=== PATIENT | female | born 1965 ===

== ENCOUNTER 2017-06-17 18:06 | Observation (INO) | payer OTHER ==
--- NOTE | 2017-06-17 19:24 | ED PDOC ---
Arrival/HPI - General Chief Complaint: Palpitations Time Seen by Provider: 06/17/17 18:32 Historian: Patient, Family EM Caveat: Language Barrier - History of Present Illness Narrative History of Present Illness (Text): 06/17/17 19:16 Pt is a 52 yr old female with PMH of a collapsed heart valve x 15 yrs, asthma and travel history who complaining of palpitations and right LE pain since this afternoon that lasted approx 2 hrs then subsided and then started again 2 more times. Pt arrived from [facility] on Tuesday to visit family and felt fine until this afternoon. 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 Denies shortness of breath, nausea, vomiting, diarrhea,fever, back pain, or any other complaints. Allergic to cats and has needed her inhaler to control asthma since she arrived as she is staying with family that has a cat. Pt called her actuarial clerk in who advised her to go to the Emergency department. Pt normally takes 2.5 mg Bisoprolol but as her symptoms came on today, she took 5mg more than normal. Time/Duration: 4-6 hours Symptom Onset: Sudden Symptom Course: Unchanged Quality: Aching Severity Level: 3 Activities at Onset: Rest Context: Home Past Medical History - Provider Review Nursing Documentation Reviewed: Yes - Travel History Have you recently traveled outside [place] w/in the past 3 mons?: Yes If Yes, travel location?: [facility] - Cardiac Hx Heart Murmur: Yes - Pulmonary Hx Asthma: Yes - Neurological Hx Neurological Disorder: No - HEENT Hx HEENT Disorder: No - Renal Hx Renal Disorder: No - Endocrine/Metabolic Hx Endocrine Disorders: No - Hematological/Oncological Hx Blood Disorders: No - Integumentary Hx Dermatological Disorder: No - Musculoskeletal/Rheumatological Hx Musculoskeletal Disorders: No - Gastrointestinal Hx Gastrointestinal Disorders: No - Genitourinary/Gynecological Hx Genitourinary Disorders: No - Psychiatric Hx Psychophysiologic Disorder: No Hx Substance Use: No - Anesthesia Hx Anesthesia: Yes Family/Social History - Physician Review Nursing Documentation Reviewed: Yes Family/Social History: Unknown Family HX Smoking Status: Never Smoked Hx Alcohol Use: No Hx Substance Use: No Allergies/Home Meds Allergies/Adverse Reactions: Allergies No Known Allergies Allergy (Verified 06/17/17 18:20) Review of Systems - Physician Review All systems were reviewed & negative as marked: Yes - Review of Systems Systems not reviewed;Unavailable: Acuity of Condition Constitutional: Normal Eyes: Normal ENT: Normal Respiratory: Normal. absent: SOB, Cough Cardiovascular: Palpitations, Calf Pain (right popliteal area). absent: Chest Pain, DAVIDSON Gastrointestinal: Normal. absent: Abdominal Pain, Nausea, Vomiting Genitourinary Female: Normal. absent: Dysuria Musculoskeletal: Normal. absent: Back Pain, Neck Pain Skin: Normal Neurological: Headache, Dizziness Endocrine: Normal Hemo/Lymphatic: Normal Psychiatric: Normal Physical Exam Vital Signs Reviewed: Yes Vital Signs Temp Pulse Resp BP Pulse Ox 06/18/17 01:24 98.0 F 70 18 112/69 99 06/18/17 01:10 70 18 112/69 99 06/17/17 23:08 97.8 F 66 18 110/50 L 100 06/17/17 18:25 98.2 F 92 H 18 146/77 100 Temperature: Afebrile Blood Pressure: Normal Pulse: Regular Respiratory Rate: Normal Appearance: Positive for: Well-Appearing, Non-Toxic, Comfortable Pain Distress: None Mental Status: Positive for: Alert and Oriented X 3 - Systems Exam Head: Present: Atraumatic, Normocephalic Pupils: Present: PERRL Extroacular Muscles: Present: EOMI Conjunctiva: Present: Normal Mouth: Present: Moist Mucous Membranes Neck: Present: Normal Range of Motion Respiratory/Chest: Present: Clear to Auscultation, Good Air Exchange. No: Respiratory Distress, Accessory Muscle Use, Wheezes, Decreased Breath Sounds Cardiovascular: Present: Regular Rate and Rhythm, Normal S1, S2, Irregular Rhythm. No: Murmurs, Peripheal Pulses Present, Tachycardic, Bradycardic, Rub, Gallop, Muffled Abdomen: Present: Normal Bowel Sounds. No: Tenderness, Distention, Peritoneal Signs Back: Present: Normal Inspection Upper Extremity: Present: Normal Inspection. No: Cyanosis, Edema Lower Extremity: Present: Normal Inspection. No: Edema Neurological: Present: GCS=15, CN II-XII Intact, Speech Normal, Motor Func Grossly Intact, Normal Sensory Function, Normal Cerebellar Funct Skin: Present: Warm, Dry, Normal Color. No: Rashes Psychiatric: Present: Alert, Oriented x 3, Normal Insight, Normal Concentration Medical Decision Making ED Course and Treatment: 06/17/17 19:27 Impression Pt is a 52 yr old female with PMH of a collapsed heart valve x 15 yrs, asthma and travel history who complaining of palpitations and right LE pain since this afternoon that lasted approx 2 hrs then subsided and then started again 2 more times. On exam, heart sounds seemed irregular, lungs ctab, neg Pattie sign Plan PE w/u including CTA, doppler b/l LE, cardiac enzymes Assess and dispo 06/17/17 20:21 Progress note spoke with radiology; pt stated allergic reaction to IV contrast and declined' order discontinued D-dimer ordered and V/Q scan ordered; 06/17/17 22:28 Labs do not reveal thrombosis 06/17/17 23:37 Troponins and d-dimer negative as well as v/q and dopplers 06/18/17 01:[address] Haynes and pt admitted to [facility] obs for sinus arrhythmia under Dr Villafana; pt evaluated by resident and Dr Haynes Re-evaluation Time: 22:39 (Pt resting; pulse still irregular) Reassessment Condition: Re-examined - Lab Interpretations Lab Results: 06/17/17 19:31 06/17/17 19:31 Lab Results 06/17/17 19:41: Urine Color Light yellow, Urine Appearance Clear, Urine pH 8.5, Ur Specific [place] 1.010, Urine Protein Negative, Urine Glucose (UA) Negative, Urine Ketones Negative, Urine Blood Negative, Urine Nitrate Negative, Urine Bilirubin Negative, Urine Urobilinogen 0.2, Ur Leukocyte Esterase Negative 06/17/17 19:31: D-Dimer, Quantitative < 200 06/17/17 19:31: Sodium 142, Chloride 102, Potassium 3.9, Carbon Dioxide 28, Anion Gap 16, BUN 12, Creatinine 0.7, Est GFR ( Amer) > 60, Est GFR (Non- Af Amer) > 60, Random Glucose 141 H, Calcium 9.5, Total Bilirubin 0.2, AST 27, ALT 25, Alkaline Phosphatase 75, Lactate Dehydrogenase 458, Total Creatine Kinase 55, Troponin I < 0.01, Total Protein 8.3, Albumin 4.7, Globulin 3.6, Albumin/Globulin Ratio 1.3 06/17/17 19:31: pO2 42, VBG pH 7.42, VBG pCO2 44.0, VBG HCO3 28.5 H, VBG Total CO2 29.9 H, VBG O2 Sat (Calc) 88.5 H, VBG Base Excess 3.4 H, VBG Potassium 3.8, Sodium 138.0, Chloride 104.0, Glucose 144 H, Lactate 1.3, FiO2 21.0, Venous Blood Potassium 3.8 06/17/17 19:31: PT 10.6, INR 0.93, APTT 31.4 06/17/17 19:31: WBC 7.2, RBC 4.72, Hgb 14.6, Hct 41.6, MCV 88.1, MCH 30.9, MCHC 35.1, RDW 12.6, Plt Count 288, MPV 9.6, Gran % 82.1 H, Lymph % (Auto) 13.4 L, [place] % (Auto) 4.3, Eos % (Auto) 0.1 L, Baso % (Auto) 0.1, Gran # 5.88, Lymph # ( Auto) 1.0 L, [place] # (Auto) 0.3, Eos # (Auto) 0.0, Baso # (Auto) 0.01 - RAD Interpretation Radiology Orders: 06/17/17 19:11 CHEST TWO VIEWS (PA/LAT) [RAD] Stat DUPLEX LOWER EXTRM VEIN BILAT [US] Stat 06/17/17 20:20 LUNG PERF & VENT SCAN [NM] Stat - Medication Orders Current Medication Orders: Levalbuterol HCl (Xopenex) 0.63 mg IH [id number] [facility] Levalbuterol HCl (Xopenex) 0.63 mg IH Q2H PRN PRN Reason: Shortness of Breath Pantoprazole Sodium (Protonix Ec Tab) 40 mg PO 0600 [facility] Last Admin: 06/18/17 06:20 Dose: 40 mg Propranolol HCl (Inderal) 10 mg PO TID [facility] Last Admin: 06/18/17 10:33 Dose: Discontinued Medications Albuterol/Ipratropium (Duoneb 3 Mg/0.5 Mg (3 Ml) Ud) 3 ml IH [id number] [facility] Last Admin: 06/18/17 08:18 Dose: 3 ml Clonazepam (Klonopin) 1 mg PO HS STA PRN Reason: Protocol Stop: 06/18/17 00:25 Last Admin: 06/18/17 01:09 Dose: 1 mg Re-Assess: Reassess Psych Meds Document 06/18/17 02:09 CD (Rec: 06/18/17 10:33 CD [id number]) Reassess Psych Med Effective Metoprolol Tartrate (Lopressor) 25 mg PO BID EDIN Last Admin: 06/18/17 09:48 Dose: 25 mg MAR Pulse and Blood Pressure Document 06/18/17 09:48 CD (Rec: 06/18/17 09:48 CD [id number]) Pulse Pulse Rate (60-90) 80 Blood Pressure Blood Pressure (100/60-150/90) 114/66 Disposition/Present on Arrival - Present on Arrival Any Indicators Present on Arrival: Yes History of DVT/PE: No History of Uncontrolled Diabetes: No Urinary Catheter: No History of Decub. Ulcer: No History Surgical Site Infection Following: None - Disposition Have Diagnosis and Disposition been Completed?: Yes Diagnosis: Sinus arrhythmia, Mitral valve prolapse Disposition: HOSPITALIZED Disposition Time: 00:00 Patient Plan: Telemetry Condition: STABLE
[2017-06-17 19:37] LABS: BASO # 0.01 K/mm3 (0.0-2.0); BASO % 0.1 % (0.0-3.0); EOS % 0.1 % (1.5-5.0); GRAN # 5.88 (1.4-6.5); GRAN % 82.1 % (50.0-68.0); HEMOGLOBIN 14.6 g/dL (12.0-16.0); LYMPH % 13.4 % (22.0-35.0); MEAN CELL VOLUME 88.1 fl (80.0-105.0); MEAN CORPUSCULAR HEMOGLOBIN 30.9 pg (25.0-35.0); MEAN CORPUSCULAR HGB CONC 35.1 g/dl (31.0-37.0); MEAN PLATELET VOLUME 9.6 fl (7.0-11.0); MONO # 0.3 (0.1-0.6); MONO % 4.3 % (1.0-6.0); RBC 4.72 10^6/uL (3.5-6.1); RED CELL DISTRIBUTION WIDTH 12.6 % (11.5-14.5); VENOUS BLOOD GAS BASE EXCESS 3.4 mmol/L (0.0-2.0); VENOUS BLOOD GAS PO2 42 mm/Hg (30-55); VENOUS BLOOD PH 7.42 (7.32-7.43); WHITE BLOOD COUNT 7.2 10^3/ul (4.5-11.0)
[2017-06-17 19:46] LABS: INR 0.93 (0.93-1.08); PARTIAL THROMBOPLASTIN TIME 31.4 Seconds (25.1-36.5); PROTHROMBIN TIME 10.6 SECONDS (9.4-12.5)
[2017-06-17 19:49] LABS: PH,URINE 8.5 (4.7-8.0); URINE BILIRUBIN NEGATIVE (NEGATIVE); URINE BLOOD NEGATIVE (NEGATIVE); URINE GLUCOSE (UA) NEGATIVE (NEGATIVE); URINE LEUKOCYTE ESTERASE NEGATIVE Leu/uL (NEGATIVE); URINE PROTEIN NEGATIVE mg/dL (<30 mg/dL); URINE UROBILINOGEN 0.2 E.U./dL (<1 E.U./dL)
[2017-06-17 19:49] LABS: ALB/GLOB RATIO 1.3 (1.1-1.8); ALBUMIN 4.7 g/dL (3.0-4.8); ALT/SGPT 25 U/L (7-56); AST/SGOT 27 U/L (14-36); BLOOD UREA NITROGEN 12 mg/dL (7-21); CALCIUM 9.5 mg/dL (8.4-10.5); GFR AFRICAN-AMERICAN > 60; GFR NON-AFRICAN AMERICAN > 60
[2017-06-17 20:00] LABS: TROPONIN I < 0.01 ng/mL
[2017-06-17] MEDS ORDERED: Iohexol 300 100 ML IJ ONE (20:01)
[2017-06-17 20:09] LABS: URINE APPEARANCE CLEAR (CLEAR); URINE COLOR LIGHT YELLOW (YELLOW)
[2017-06-18] MEDS ORDERED: Albuterol-Ipratrop 3 mg / 0.5 (3 ml) UD IH PRN (00:44)
--- NOTE | 2017-06-18 01:05 | CP.PCM.HP ---
<Osbaldo Peterson - Last Filed: 06/18/17 01:00> History of Present Illness - History of Present Illness History of Present Illness: Medicine H&P: Dr. Lucius Haynes Chief Complaint: Palpitations HPI: 52 yr old [place] the [place] with medical history of a mitral valve prolapse x 15 yrs, asthma and travel history who presenting with palpitations and right LE pain since this afternoon that lasted approx 2 hrs then subsided and then started again 2 more times. Patient also complains of asthma exacerbations because of her family's cat. Patient denies chest pain or chest discomfort and denies shortness of breath Spoke to patient's engineer of system development from the [place] who stated that patient has never had a stress test, AMI, or catheterization, and that her ECHO has shown MVP with no MR. He also stated that patient has never complained of symptoms before. Review Of Systems: 12 point ROS obtained and negative except as per HPI Surgical History: Hysterectomy Medical History: MVP, Asthma Allergies: NKDA Social History: Social drinker; denies illicits and tobacco Home Meds: Inhaler, Bisoprolol, Klonopin 1 mg HS Family History: Hypertension PMD: In Home Designer: In Present on Admission - Present on Admission Any Indicators Present on Admission: No Past Patient History - Past Social History Smoking Status: Never Smoked - CARDIAC Hx Heart Murmur: Yes - PULMONARY Hx Asthma: Yes - NEUROLOGICAL Hx Neurological Disorder: No - HEENT Hx HEENT Problems: No - RENAL Hx Chronic Kidney Disease: No - ENDOCRINE/METABOLIC Hx Endocrine Disorders: No - HEMATOLOGICAL/ONCOLOGICAL Hx Blood Disorders: No - INTEGUMENTARY Hx Dermatological Problems: No - MUSCULOSKELETAL/RHEUMATOLOGICAL Hx Musculoskeletal Disorders: No - GASTROINTESTINAL Hx Gastrointestinal Disorders: No - GENITOURINARY/GYNECOLOGICAL Hx Genitourinary Disorders: No - PSYCHIATRIC Hx Psychophysiologic Disorder: No Hx Substance Use: No - SURGICAL HISTORY Hx Surgeries: No - ANESTHESIA Hx Anesthesia: Yes Meds Allergies/Adverse Reactions: Allergies Allergy/AdvReac Type Severity Reaction Status Date / Time No Known Allergies Allergy Verified 06/17/17 18:20 Physical Exam - Constitutional Appears: Well - Head Exam Head Exam: ATRAUMATIC, NORMAL INSPECTION, NORMOCEPHALIC - Eye Exam Eye Exam: EOMI, Normal appearance, PERRL Pupil Exam: NORMAL ACCOMODATION, PERRL - ENT Exam ENT Exam: Mucous Membranes Moist, Normal Exam - Neck Exam Neck exam: Positive for: Normal Inspection - Respiratory Exam Respiratory Exam: Clear to Auscultation Bilateral, NORMAL BREATHING PATTERN - Cardiovascular Exam Cardiovascular Exam: Irregular Rhythm, +S1, +S2, Systolic Murmur - GI/Abdominal Exam GI & Abdominal Exam: Normal Bowel Sounds, Soft. absent: Tenderness - Extremities Exam Extremities exam: Positive for: normal inspection Additional comments: trace bilateral lower extremity edema - Back Exam Back exam: NORMAL INSPECTION - Neurological Exam Neurological exam: Alert, CN II-XII Intact, Normal Gait, Oriented x3, Reflexes Normal - Psychiatric Exam Psychiatric exam: Normal Affect, Normal Mood - Skin Skin Exam: Dry, Intact, Normal Color, Warm Results - Vital Signs Recent Vital Signs: Last Vital Signs Temp 97.8 F 06/17/17 23:08 Pulse 66 06/17/17 23:08 Resp 06/17/17 23:08 BP 110/50 L 06/17/17 23:08 Pulse Ox 100 06/17/17 23:08 - Labs Result Diagrams: 06/17/17 19:31 06/17/17 19:31 Assessment & Plan - Assessment and Plan (Free Text) Assessment: 52 year old female with pertinent medical history of MVP and asthma presents with palpitations and lower extremity pain after travel. Patient's EKG shows Sinus Arrhythmia with nonspecific ST/T changes. Patient's first troponin is negative. Patient denies any shortness of breath and V/Q scan, Duplex were both negative for PE/DVT. Patient has been having more asthma exacerbations since arriving in the [place] due to her family here having a cat. In addition, patient has been consuming coffee which she usually does not drink. Plan: Palpitations, likely 2/2 Sinus Arrhythmia being caused by coffee VS asthma exacerbations - Tropes, EKG series; ECHO - Metoprolol 25 PO BID LE Extremity Pain - PE and DVT ruled out Asthma - Duonebs EDIN and PRN Anxiety - Klonopin 1 mg HS GI/DVT Prophylaxis - Protonix/SCD <Shama Haynes - Last Filed: 06/19/17 06:22> Results - Vital Signs Recent Vital Signs: Last Vital Signs Temp 97.9 F 06/19/17 06:00 Pulse 69 06/19/17 06:00 Resp 06/19/17 06:00 BP 106/56 L 06/19/17 06:00 Pulse Ox 99 06/19/17 06:00 - Labs Result Diagrams: 06/18/17 03:10 06/18/17 11:15 Labs: Laboratory Results - last 24 hr 06/18/17 06/18/17 11:15 11:15 Sodium 143 Potassium 3.5 L Chloride 106 Carbon Dioxide 26 Anion Gap 15 BUN 8 Creatinine 0.7 Est GFR ( Amer) > 60 Est GFR (Non-Af Amer) > 60 Random Glucose 92 Calcium 9.2 Total Bilirubin 0.4 AST 27 ALT 25 Alkaline Phosphatase 65 Total Protein 8.0 Albumin 4.5 Globulin 3.6 Albumin/Globulin Ratio 1.2 TSH 3rd Generation 5.38 H
[2017-06-18] MEDS: Albuterol-Ipratrop 3 mg / 0.5 (3 ml) UD IH SCH ×2 (03:14→08:18)
[2017-06-18 03:25] LABS: BASO # 0.01 K/mm3 (0.0-2.0); BASO % 0.2 % (0.0-3.0); EOS % 0.3 % (1.5-5.0); GRAN # 4.6 (1.4-6.5); HEMOGLOBIN 13.7 g/dL (12.0-16.0); LYMPH # 1.3 (1.2-3.4); LYMPH % 20.4 % (22.0-35.0); MEAN CELL VOLUME 87.9 fl (80.0-105.0); MEAN CORPUSCULAR HEMOGLOBIN 30.6 pg (25.0-35.0); MEAN CORPUSCULAR HGB CONC 34.8 g/dl (31.0-37.0); MEAN PLATELET VOLUME 9.4 fl (7.0-11.0); MONO # 0.5 (0.1-0.6); MONO % 7.1 % (1.0-6.0); RBC 4.48 10^6/uL (3.5-6.1); RED CELL DISTRIBUTION WIDTH 12.6 % (11.5-14.5); WHITE BLOOD COUNT 6.4 10^3/ul (4.5-11.0)
[2017-06-18 03:48] LABS: TROPONIN I < 0.01 ng/mL
[2017-06-18 04:27] VITALS: BMI 22.6
[2017-06-18] MEDS: Pantoprazole 40 mg EC Tab PO SCH (06:20)
[2017-06-18] MEDS ORDERED: Levalbuterol 0.63 MG/3 ML Inhal Soln UD IH PRN (09:30)
--- NOTE | 2017-06-18 09:32 | RAD ---
HISTORY: palpitations COMPARISON: No prior. TECHNIQUE: Chest PA and lateral FINDINGS: LUNGS: No active pulmonary disease. PLEURA: No significant pleural effusion identified. No pneumothorax apparent. CARDIOVASCULAR: Normal. OSSEOUS STRUCTURES: No significant abnormalities. VISUALIZED UPPER ABDOMEN: Normal. OTHER FINDINGS: None. IMPRESSION: No active disease.
--- NOTE | 2017-06-18 09:59 | NM ---
COMPARISON: Chest x-ray same day TECHNIQUE: Ventilation and perfusion lung scan was performed. 30 mCi technetium 99-m DTPA aerosol 3.2 mCI technetium 99-m MAA administered intravenously. FINDINGS: VENTILATION COMPONENT: No ventilation defects are appreciated. Small amount of uptake is seen in the stomach secondary to air swallowing. PERFUSION COMPONENT: No appreciable perfusion defect is noted. There are rounded areas of focal uptake in the central portions of the lungs which may be related to clumping of the radiopharmaceutical. No V/Q mismatch is appreciated. IMPRESSION: Lowprobability ventilation perfusion scan for pulmonary embolism. This agrees with preliminary report provided by the on-call radiologist.
--- NOTE | 2017-06-18 11:18 | CARD ---
APPROVED REPORT EKG Measurement Heart [id number] <Conclusion> Normal sinus rhythm Nonspecific T wave abnormality Abnormal ECG
--- NOTE | 2017-06-18 11:20 | CARD ---
APPROVED REPORT EKG Measurement Heart [id number] 134P [id number] <Conclusion> Sinus rhythm with marked sinus arrhythmia Nonspecific ST and T wave abnormality Abnormal ECG
[2017-06-18 11:46] LABS: ALB/GLOB RATIO 1.2 (1.1-1.8); ALBUMIN 4.5 g/dL (3.0-4.8); ALT/SGPT 25 U/L (7-56); AST/SGOT 27 U/L (14-36); BLOOD UREA NITROGEN 8 mg/dL (7-21); CALCIUM 9.2 mg/dL (8.4-10.5); GFR AFRICAN-AMERICAN > 60; GFR NON-AFRICAN AMERICAN > 60
--- NOTE | 2017-06-18 11:59 | CP.PCM.DIS ---
Provider - Provider Date of Admission: 06/17/17 23:40 Attending physician: Kayode Villafana MD Primary care physician: NO PRIMARY CARE PROVIDER Hospital Course - Lab Results Lab Results: Most Recent Lab Values WBC 6.4 10^3/ul (4.5-11.0) 06/18/17 03:10 RBC 4.48 10^6/uL (3.5-6.1) 06/18/17 03:10 Hgb 13.7 g/dL (12.0-16.0) 06/18/17 03:10 Hct 39.4 % (36.0-48.0) 06/18/17 03:10 MCV 87.9 fl (80.0-105.0) 06/18/17 03:10 MCH 30.6 pg (25.0-35.0) 06/18/17 03:10 MCHC 34.8 g/dl (31.0-37.0) 06/18/17 03:10 RDW 12.6 % (11.5-14.5) 06/18/17 03:10 Plt Count 259 10^3/uL (120.0-450.0) 06/18/17 03:10 MPV 9.4 fl (7.0-11.0) 06/18/17 03:10 Gran % 72.0 % (50.0-68.0) H 06/18/17 03:10 Lymph % (Auto) 20.4 % (22.0-35.0) L 06/18/17 03:10 [place] % (Auto) 7.1 % (1.0-6.0) H 06/18/17 03:10 Eos % (Auto) 0.3 % (1.5-5.0) L 06/18/17 03:10 Baso % (Auto) 0.2 % (0.0-3.0) 06/18/17 03:10 Gran # 4.60 (1.4-6.5) 06/18/17 03:10 Lymph # (Auto) 1.3 (1.2-3.4) 06/18/17 03:10 [place] # (Auto) 0.5 (0.1-0.6) 06/18/17 03:10 Eos # (Auto) 0.0 (0.0-0.7) 06/18/17 03:10 Baso # (Auto) 0.01 K/mm3 (0.0-2.0) 06/18/17 03:10 PT 10.6 SECONDS (9.4-12.5) 06/17/17 19:31 INR 0.93 (0.93-1.08) 06/17/17 19:31 APTT 31.4 Seconds (25.1-36.5) 06/17/17 19:31 D-Dimer, Quantitative < 200 ng/mL (0-243) 06/17/17 19:31 pO2 42 mm/Hg (30-55) 06/17/17 19:31 VBG pH 7.42 (7.32-7.43) 06/17/17 19:31 VBG pCO2 44.0 (40-60) 06/17/17 19:31 VBG HCO3 28.5 mmol/l (21-28) H 06/17/17 19:31 VBG Total CO2 29.9 mmol.L (22-28) H 06/17/17 19:31 VBG O2 Sat (Calc) 88.5 % (40-65) H 06/17/17 19:31 VBG Base Excess 3.4 mmol/L (0.0-2.0) H 06/17/17 19:31 VBG Potassium 3.8 mmol/L (3.6-5.2) 06/17/17 19:31 Sodium 138.0 mmol/L (132-148) 06/17/17 19:31 Chloride 104.0 mmol/L (98-107) 06/17/17 19:31 Glucose 144 mg/dl (65-105) H 06/17/17 19:31 Lactate 1.3 mmol/L (0.7-2.1) 06/17/17 19:31 FiO2 21.0 % 06/17/17 19:31 Sodium 143 mmol/L (132-148) 06/18/17 11:15 Potassium 3.5 mmol/L (3.6-5.0) L 06/18/17 11:15 Chloride 106 mmol/L (98-107) 06/18/17 11:15 Carbon Dioxide 26 mmol/L (21-33) 06/18/17 11:15 Anion Gap 15 (10-20) 06/18/17 11:15 BUN 8 mg/dL (7-21) 06/18/17 11:15 Creatinine 0.7 mg/dl (0.7-1.2) 06/18/17 11:15 Est GFR ( Amer) > 60 06/18/17 11:15 Est GFR (Non-Af Amer) > 60 06/18/17 11:15 Random Glucose 92 mg/dL (70-110) 06/18/17 11:15 Calcium 9.2 mg/dL (8.4-10.5) 06/18/17 11:15 Phosphorus 1.9 mg/dL (2.5-4.5) L 06/18/17 01:30 Magnesium 2.5 mg/dL (1.7-2.2) H 06/18/17 01:30 Total Bilirubin 0.4 mg/dL (0.2-1.3) 06/18/17 11:15 AST 27 U/L (14-36) 06/18/17 11:15 ALT 25 U/L (7-56) 06/18/17 11:15 Alkaline Phosphatase 65 U/L (38-126) 06/18/17 11:15 Lactate Dehydrogenase 379 U/L (333-699) 06/18/17 03:10 Total Creatine Kinase 46 U/L (35-230) 06/18/17 03:10 Troponin I < 0.01 ng/mL 06/18/17 03:10 Total Protein 8.0 g/dL (5.8-8.3) 06/18/17 11:15 Albumin 4.5 g/dL (3.0-4.8) 06/18/17 11:15 Globulin 3.6 gm/dL 06/18/17 11:15 Albumin/Globulin Ratio 1.2 (1.1-1.8) 06/18/17 11:15 Venous Blood Potassium 3.8 mmol/L (3.6-5.2) 06/17/17 19:31 Urine Color Light yellow (YELLOW) 06/17/17 19:41 Urine Appearance Clear (CLEAR) 06/17/17 19:41 Urine pH 8.5 (4.7-8.0) 06/17/17 19:41 Ur Specific [place] 1.010 (1.005-1.035) 06/17/17 19:41 Urine Protein Negative mg/dL (<30 mg/dL) 06/17/17 19:41 Urine Glucose (UA) Negative mg/dL (NEGATIVE) 06/17/17 19:41 Urine Ketones Negative mg/dL (NEGATIVE) 06/17/17 19:41 Urine Blood Negative (NEGATIVE) 06/17/17 19:41 Urine Nitrate Negative (NEGATIVE) 06/17/17 19:41 Urine Bilirubin Negative (NEGATIVE) 06/17/17 19:41 Urine Urobilinogen 0.2 E.U./dL (<1 E.U./dL) 06/17/17 19:41 Ur Leukocyte Esterase Negative Quintin/uL (NEGATIVE) 06/17/17 19:41 Discharge Exam - Head Exam Head Exam: ATRAUMATIC, NORMAL INSPECTION, NORMOCEPHALIC Discharge Plan - Follow Up Plan Condition: STABLE Disposition: HOME/ ROUTINE Instructions: Metoprolol
[2017-06-18] MEDS: Levalbuterol 0.63 MG/3 ML Inhal Soln UD IH SCH ×2 (14:01→19:57)
--- NOTE | 2017-06-18 15:11 | US ---
PROCEDURE: Bilateral lower extremity venous duplex Doppler. HISTORY: Right popliteal pain COMPARISON: None available. TECHNIQUE: Bilateral common femoral, superficial femoral, popliteal and posterior tibial veins were evaluated. Flow was assessed with color Doppler, compressibility, assessment of phasic flow and augmentation response. FINDINGS: COMMON FEMORAL VEIN: Right CFV: Unremarkable. Left CFV: Unremarkable. SUPERFICIAL FEMORAL VEIN: Right SFV: Unremarkable. Left SFV: Unremarkable. POPLITEAL VEIN: Right Popliteal: Unremarkable. Left Popliteal: Unremarkable. POSTERIOR TIBIAL VEIN: Right PTV: Unremarkable. Left PTV: Unremarkable. OTHER FINDINGS: None. IMPRESSION: No evidence of deep venous thrombosis.
--- NOTE | 2017-06-18 19:44 | CARD ---
APPROVED REPORT EKG Measurement Heart [id number] 160P-3 [id number] <Conclusion> Normal sinus rhythm Nonspecific T wave abnormality Abnormal ECG
--- NOTE | 2017-06-18 21:24 | CON ---
DATE: SERVICE: Cardiology. REASON FOR CONSULTATION AND FOLLOWUP: Cardiac evaluation, admitted with palpitations, history of palpitation, and possible thyroid goiter. BRIEF CLINICAL HISTORY: This is a 52-year-old female from [facility] came in with questionable history of mitral valve prolapse, asthma, who recently back here thyroid goiter being managed on bisoprolol and lorazepam, came in with palpitations, feels the heart is raising, so came to the emergency room. Denies any chest pain. Apparently looks like resident talked to croze machine operator in [facility], who said that the patient had echo done that was with MVP with no MR. PAST HISTORY: Significant for palpitations. SOCIAL HISTORY: Denies any history of alcohol abuse, questionable history of mitral valve prolapse and asthma. PAST SURGICAL HISTORY: Significant for hysterectomy. FAMILY HISTORY: No significant history of coronary artery disease. CURRENT MEDICATIONS: The patient was taking bisoprolol and lorazepam at home. REVIEW OF SYSTEMS: As per HPI. PHYSICAL EXAMINATION: VITAL SIGNS: Temperature afebrile, heart rate 90, blood pressure 105/52. HEENT: PERRLA, intact. NECK: Supple. No carotid bruit or thyromegaly. CHEST: Clear to auscultation. HEART: S1 and S2, regular. ABDOMEN: Soft. EXTREMITIES: Clubbing and cyanosis negative. LABORATORY DATA: WBC 6.4, hemoglobin 13.7, hematocrit 39.4, platelet count 259. Chemistry shows sodium 142, potassium 3.9, chloride 102, carbon dioxide 28, anion gap of 15. BUN 12, creatinine 0.7. Troponin 0.01 negative. IMPRESSION: Questionable history of mitral valve prolapse, from [facility], history of palpitations, was on bisoprolol, admitted with palpitations. EKG shows normal sinus with APCs. No significant murmur noted. RECOMMENDATIONS: We will add TSH level and blood drawn. We will get echo to rule out any structural heart disease. We will follow with you. We will cancel cardiac enzymes, low probability and low risk, but definitively, we will add on TSH and ordered echo to see, and we will discontinue metoprolol and start propranolol 10 mg t.i.d., first dose now. I will repeat another EKG in the morning. Thank you Dr. Villafana, for providing us the opportunity in taking care of the patient, Reginald Vasquez. Davidson Del Valle MD
[2017-06-18 23:59] VITALS: RESP 18
[2017-06-19] MEDS: Levalbuterol 0.63 MG/3 ML Inhal Soln UD IH SCH ×3 (04:12→13:13)
[2017-06-19] MEDS: Pantoprazole 40 mg EC Tab PO SCH (05:10)
[2017-06-19 06:02] VITALS: O2SAT 99
[2017-06-19 07:20] LABS: BASO # 0.01 K/mm3 (0.0-2.0); BASO % 0.2 % (0.0-3.0); EOS # 0.1 (0.0-0.7); GRAN # 3.42 (1.4-6.5); GRAN % 59.6 % (50.0-68.0); HEMOGLOBIN 13.3 g/dL (12.0-16.0); LYMPH # 1.7 (1.2-3.4); LYMPH % 30.3 % (22.0-35.0); MEAN CORPUSCULAR HEMOGLOBIN 29.9 pg (25.0-35.0); MEAN CORPUSCULAR HGB CONC 33.6 g/dl (31.0-37.0); MONO # 0.5 (0.1-0.6); MONO % 8.9 % (1.0-6.0); RBC 4.45 10^6/uL (3.5-6.1); WHITE BLOOD COUNT 5.7 10^3/ul (4.5-11.0)
[2017-06-19 07:38] LABS: ALB/GLOB RATIO 1.2 (1.1-1.8); ALT/SGPT 22 U/L (7-56); AST/SGOT 22 U/L (14-36); BLOOD UREA NITROGEN 10 mg/dL (7-21); GFR AFRICAN-AMERICAN > 60; GFR NON-AFRICAN AMERICAN > 60
--- NOTE | 2017-06-19 08:58 | CP.PCM.CON ---
History of Present Illness - History of Present Illness History of Present Illness: Lying in bed, denies chest pain, denies shortness of breath Reason for consultation: Cardiac evaluation, admitted ofr palpitations, history of mitral valve prolapse x 15 years, Brief history of present illness: A 52 year old female who came in to the ER yesterday due to palpitations and right lower extremity pain lasting for 2 hours off and on. She also complained of asthma exacerbation. Denies chest pain and shortness of breath. History of asthma,hysterectomy, mitral valve prolapse. social drinker,denies smoking. Seen and examined by me and Dr. Del Valle Review of Systems - Constitutional Constitutional: As Per HPI - Breasts Additional comments: denies any problem - Cardiovascular Cardiovascular: Palpitations - Gastrointestinal Additional comments: denies nausea and vomiting - Genitourinary Additional comments: denies any problems - Reproductive: Female Reproductive:Female: S/P Hysterectomy, Post Menopausal - Musculoskeletal Additional comments: denies any problems - Neurological Neurological: As Per HPI Past Patient History - Past Social History Smoking Status: Never Smoked - CARDIAC Hx Heart Murmur: Yes - PULMONARY Hx Asthma: Yes - NEUROLOGICAL Hx Neurological Disorder: No - HEENT Hx HEENT Problems: No - RENAL Hx Chronic Kidney Disease: No - ENDOCRINE/METABOLIC Hx Endocrine Disorders: No - HEMATOLOGICAL/ONCOLOGICAL Hx Blood Disorders: No - INTEGUMENTARY Hx Dermatological Problems: No - MUSCULOSKELETAL/RHEUMATOLOGICAL Hx Musculoskeletal Disorders: No - GASTROINTESTINAL Hx Gastrointestinal Disorders: No - GENITOURINARY/GYNECOLOGICAL Hx Genitourinary Disorders: No - PSYCHIATRIC Hx Psychophysiologic Disorder: No Hx Substance Use: No - SURGICAL HISTORY Hx Hysterectomy: Yes - ANESTHESIA Hx Anesthesia: Yes Meds Allergies/Adverse Reactions: Allergies Allergy/AdvReac Type Severity Reaction Status Date / Time No Known Allergies Allergy Verified 06/17/17 18:20 - Medications Medications: Current Medications Levalbuterol HCl (Xopenex) 0.63 mg IH [id number] [facility] Last Admin: 06/19/17 08:01 Dose: 0.63 mg Levalbuterol HCl (Xopenex) 0.63 mg IH Q2H PRN PRN Reason: Shortness of Breath Pantoprazole Sodium (Protonix Ec Tab) 40 mg PO 0600 [facility] Last Admin: 06/19/17 05:10 Dose: 40 mg Propranolol HCl (Inderal) 10 mg PO TID [facility] Last Admin: 06/18/17 18:10 Dose: 10 mg Results - Vital Signs Recent Vital Signs: Last Vital Signs Temp 97.9 F 06/19/17 06:00 Pulse 69 06/19/17 06:00 Resp 18 06/19/17 06:00 BP 106/56 L 06/19/17 06:00 Pulse Ox 99 06/19/17 06:00 - Labs Result Diagrams: 06/19/17 06:30 06/19/17 06:30 Labs: Laboratory Results - last 24 hr 06/18/17 06/18/17 06/19/17 11:15 11:15 06:30 WBC 5.7 RBC 4.45 Hgb 13.3 Hct 39.6 MCV 89.0 MCH 29.9 MCHC 33.6 RDW 13.0 Plt Count 274 MPV 10.0 Gran % 59.6 Lymph % (Auto) 30.3 [place] % (Auto) 8.9 H Eos % (Auto) 1.0 L Baso % (Auto) 0.2 Gran # 3.42 Lymph # (Auto) 1.7 [place] # (Auto) 0.5 Eos # (Auto) 0.1 Baso # (Auto) 0.01 Sodium 143 Potassium 3.5 L Chloride 106 Carbon Dioxide 26 Anion Gap 15 BUN 8 Creatinine 0.7 Est GFR ( Amer) > 60 Est GFR (Non-Af Amer) > 60 Random Glucose 92 Calcium 9.2 Phosphorus Magnesium Total Bilirubin 0.4 AST 27 ALT 25 Alkaline Phosphatase 65 Total Protein 8.0 Albumin 4.5 Globulin 3.6 Albumin/Globulin Ratio 1.2 TSH 3rd Generation 5.38 H 06/19/17 06:30 WBC RBC Hgb Hct MCV MCH MCHC RDW Plt Count MPV Gran % Lymph % (Auto) [place] % (Auto) Eos % (Auto) Baso % (Auto) Gran # Lymph # (Auto) [place] # (Auto) Eos # (Auto) Baso # (Auto) Sodium 141 Potassium 3.5 L Chloride 107 Carbon Dioxide 23 Anion Gap 14 BUN 10 Creatinine 0.7 Est GFR ( Amer) > 60 Est GFR (Non-Af Amer) > 60 Random Glucose 85 Calcium 9.0 Phosphorus 3.4 Magnesium 2.2 Total Bilirubin 0.3 AST 22 ALT 22 Alkaline Phosphatase 64 Total Protein 7.3 Albumin 4.0 Globulin 3.4 Albumin/Globulin Ratio 1.2 TSH 3rd Generation Assessment & Plan - Assessment and Plan (Free Text) Assessment: A 52 year old female who came in to the ER yesterday due to palpitations and right lower extremity pain lasting for 2 hours off and on. She also complained of asthma exacerbation. Denies chest pain and shortness of breath. History of asthma,hysterectomy, mitral valve prolapse. social drinker,denies smoking. Plan: Lung scan done, negative for pulmonary embolism Doppler scan of lower extremity done negative for DVT Echocardiogram done yesterday final reading pending Will follow up result/final reading 12 lead EKG done- Normal sinus rhythm ,non specific T-wave abnormality Negative Troponin Chart reviewed and no other test/ cardiac work up done in [facility] Continue Inderal 10 mg TID Continue current medications Continue current treatment Will follow up Thank you for giving us the opportunity to take care Ms. Reginald La
[2017-06-19] MEDS ORDERED: Potassium Chloride 20 mEq ER Tab PO ONE (11:17)
[2017-06-19 11:53] VITALS: BP 117/64; TEMP 98
--- NOTE | 2017-06-19 12:12 | CARD ---
APPROVED REPORT EXAM: Two-dimensional and M-mode echocardiogram with Doppler and color Doppler. INDICATION 2D DIMENSIONS IVSd1.0 (0.7-1.1cm)LVDd4.1 (3.9-5.9cm) PWd0.9 (0.7-1.1cm)LVDs2.6 (2.5-4.0cm) FS (%) 37.3 %LVEF (%)67.7 (>50%) M-Mode DIMENSIONS Left Atrium (MM)2.90 (2.5-4.0cm)Aortic Root3.00 (2.2-3.7cm) Aortic Cusp Exc.1.90 (1.5-2.0cm) Aortic Valve AoV Peak Glwtfwuj885.0cm/[place] Peak GR.7mmHg Mitral Valve MV E Efqfqsqs77.6cm/sMV A Hmqjnmmf30.4cm/sE/A ratio1.5 TDI Lateral E' Peak V11.40cm/sMedial E' Peak V7.02cm/sE/Lateral E'8.4 E/Medial E'13.6 Tricuspid Valve TR Peak [id number]/sRAP [id number] Peak Gr.24mmHg [id number] LEFT VENTRICLE The left ventricle is normal size. There is normal left ventricular wall thickness. The left ventricular function is normal.EF-65% There is normal LV segmental wall motion. The left ventricular diastolic function is normal. No left ventricle thrombus noted on this study. There is no ventricular septal defect visualized. There is no left ventricular aneurysm. There is no mass noted in the left ventricle. RIGHT VENTRICLE The right ventricle is normal size. There is normal right ventricular wall thickness. The right ventricular systolic function is normal. ATRIA The left atrium size is normal. The right atrium size is normal. The interatrial septum is intact with no evidence for an atrial septal defect. AORTIC VALVE The aortic valve is thickened but opens well. No aortic regurgitation is present. There is no aortic valvular stenosis. There is no aortic valvular vegetation. MITRAL VALVE The mitral valve is thickened but opens well. Mitral regurgitation is trace. There is no mitral valve stenosis. There is no evidence of mitral valve prolapse. TRICUSPID VALVE The tricuspid valve is normal in structure. There is trace tricuspid regurgitation.RVSP-34 mmogf Hg. There is no tricuspid valve stenosis. There is no tricuspid valve prolapse or vegetation. PULMONIC VALVE The pulmonary valve is normal in structure. There is no pulmonic valvular regurgitation. There is no pulmonic valvular stenosis. GREAT VESSELS The aortic root is normal in size. The ascending aorta is normal in size. The pulmonary artery is normal. The IVC is normal in size and collapses >50% with inspiration. PERICARDIAL EFFUSION There is no pleural effusion. Trivial Pe <Conclusion> Normal Chamber Size.EF-65% Trace MR/TR No MVP RVSP-34 mmof Hg Trivial Pericardial effusion.
[2017-06-19 13:16] VITALS: PULSE 65
--- NOTE | 2017-06-19 14:19 | CP.PCM.DIS ---
<Ravi Parekh - Last Filed: 06/19/17 16:54> Provider - Provider Date of Admission: 06/17/17 23:40 Attending physician: Kayode Villafana MD Primary care physician: NO PRIMARY CARE PROVIDER Consults: Cardio: Colt Time Spent in preparation of Discharge (in minutes): 45 Diagnosis - Discharge Diagnosis (1) Palpitations Status: Chronic Priority: Medium (2) Elevated TSH Status: Acute Priority: High (3) Mitral valve prolapse Status: Chronic Priority: High (4) Sinus arrhythmia Status: Acute Priority: Medium Hospital Course - Lab Results Lab Results: Micro Results 06/18/17 03:30 Blood Blood Culture - Preliminary NO GROWTH AFTER 24 HOURS 06/18/17 03:00 Blood Blood Culture - Preliminary NO GROWTH AFTER 24 HOURS Most Recent Lab Values WBC 5.7 10^3/ul (4.5-11.0) 06/19/17 06:30 RBC 4.45 10^6/uL (3.5-6.1) 06/19/17 06:30 Hgb 13.3 g/dL (12.0-16.0) 06/19/17 06:30 Hct 39.6 % (36.0-48.0) 06/19/17 06:30 MCV 89.0 fl (80.0-105.0) 06/19/17 06:30 MCH 29.9 pg (25.0-35.0) 06/19/17 06:30 MCHC 33.6 g/dl (31.0-37.0) 06/19/17 06:30 RDW 13.0 % (11.5-14.5) 06/19/17 06:30 Plt Count 274 10^3/uL (120.0-450.0) 06/19/17 06:30 MPV 10.0 fl (7.0-11.0) 06/19/17 06:30 Gran % 59.6 % (50.0-68.0) 06/19/17 06:30 Lymph % (Auto) 30.3 % (22.0-35.0) 06/19/17 06:30 [place] % (Auto) 8.9 % (1.0-6.0) H 06/19/17 06:30 Eos % (Auto) 1.0 % (1.5-5.0) L 04/29/18 06:30 Baso % (Auto) 0.2 % (0.0-3.0) 06/19/17 06:30 Gran # 3.42 (1.4-6.5) 06/19/17 06:30 Lymph # (Auto) 1.7 (1.2-3.4) 06/19/17 06:30 [place] # (Auto) 0.5 (0.1-0.6) 06/19/17 06:30 Eos # (Auto) 0.1 (0.0-0.7) 06/19/17 06:30 Baso # (Auto) 0.01 K/mm3 (0.0-2.0) 06/19/17 06:30 PT 10.6 SECONDS (9.4-12.5) 06/17/17 19:31 INR 0.93 (0.93-1.08) 06/17/17 19:31 APTT 31.4 Seconds (25.1-36.5) 06/17/17 19:31 D-Dimer, Quantitative < 200 ng/mL (0-243) 06/17/17 19:31 pO2 42 mm/Hg (30-55) 06/17/17 19:31 VBG pH 7.42 (7.32-7.43) 06/17/17 19:31 VBG pCO2 44.0 (40-60) 06/17/17 19:31 VBG HCO3 28.5 mmol/l (21-28) H 06/17/17 19:31 VBG Total CO2 29.9 mmol.L (22-28) H 06/17/17 19:31 VBG O2 Sat (Calc) 88.5 % (40-65) H 06/17/17 19:31 VBG Base Excess 3.4 mmol/L (0.0-2.0) H 06/17/17 19:31 VBG Potassium 3.8 mmol/L (3.6-5.2) 06/17/17 19:31 Sodium 138.0 mmol/L (132-148) 06/17/17 19:31 Chloride 104.0 mmol/L (98-107) 06/17/17 19:31 Glucose 144 mg/dl (65-105) H 06/17/17 19:31 Lactate 1.3 mmol/L (0.7-2.1) 06/17/17 19:31 FiO2 21.0 % 06/17/17 19:31 Sodium 141 mmol/L (132-148) 06/19/17 06:30 Potassium 3.5 mmol/L (3.6-5.0) L 06/19/17 06:30 Chloride 107 mmol/L (98-107) 06/19/17 06:30 Carbon Dioxide 23 mmol/L (21-33) 06/19/17 06:30 Anion Gap 14 (10-20) 06/19/17 06:30 BUN 10 mg/dL (7-21) 06/19/17 06:30 Creatinine 0.7 mg/dl (0.7-1.2) 06/19/17 06:30 Est GFR ( Amer) > 60 06/19/17 06:30 Est GFR (Non-Af Amer) > 60 06/19/17 06:30 Random Glucose 85 mg/dL (70-110) 06/19/17 06:30 Calcium 9.0 mg/dL (8.4-10.5) 06/19/17 06:30 Phosphorus 3.4 mg/dL (2.5-4.5) 06/19/17 06:30 Magnesium 2.2 mg/dL (1.7-2.2) 06/19/17 06:30 Total Bilirubin 0.3 mg/dL (0.2-1.3) 06/19/17 06:30 AST 22 U/L (14-36) 06/19/17 06:30 ALT 22 U/L (7-56) 06/19/17 06:30 Alkaline Phosphatase 64 U/L (38-126) 06/19/17 06:30 Lactate Dehydrogenase 379 U/L (333-699) 06/18/17 03:10 Total Creatine Kinase 46 U/L (35-230) 06/18/17 03:10 Troponin I < 0.01 ng/mL 06/18/17 03:10 Total Protein 7.3 g/dL (5.8-8.3) 06/19/17 06:30 Albumin 4.0 g/dL (3.0-4.8) 06/19/17 06:30 Globulin 3.4 gm/dL 06/19/17 06:30 Albumin/Globulin Ratio 1.2 (1.1-1.8) 06/19/17 06:30 TSH 3rd Generation 5.38 mIU/mL (0.46-4.68) H 06/18/17 11:15 Venous Blood Potassium 3.8 mmol/L (3.6-5.2) 06/17/17 19:31 Urine Color Light yellow (YELLOW) 06/17/17 19:41 Urine Appearance Clear (CLEAR) 06/17/17 19:41 Urine pH 8.5 (4.7-8.0) 06/17/17 19:[address] [place] 1.010 (1.005-1.035) 06/17/17 19:41 Urine Protein Negative mg/dL (<30 mg/dL) 06/17/17 19:41 Urine Glucose (UA) Negative mg/dL (NEGATIVE) 06/17/17 19:41 Urine Ketones Negative mg/dL (NEGATIVE) 06/17/17 19:41 Urine Blood Negative (NEGATIVE) 06/17/17 19:41 Urine Nitrate Negative (NEGATIVE) 06/17/17 19:41 Urine Bilirubin Negative (NEGATIVE) 06/17/17 19:41 Urine Urobilinogen 0.2 E.U./dL (<1 E.U./dL) 06/17/17 19:41 Ur Leukocyte Esterase Negative Quintin/uL (NEGATIVE) 06/17/17 19:41 - Hospital Course Hospital Course: This is a 52 yr old female from the with PMH of mitral valve prolapse x 15 yrs, asthma and travel history who presenting with palpitations and right LE pain since this afternoon that lasted approx 2 hrs then subsided and then started again 2 more times. While here, the patient was also seen by cardiology. As per Cardio, Echo did not reveal MVP, otherwise echo unremarkable , cleared for discharge. Also recs switching to propranolol for HR/BP control. Today, patient reports feeling improved, no new episodes of palpitations this AM. Overnight telemetry and AM EKG reviewed, unremarkable. As per Cardio's recs, pt was instructed to stop taking her home Bisoprolol, and was given a script for Propranolol. She was also given a copy of her last 2 EKGs and a copy of her Echo report, and was instructed to present these to her home Associate Store Director in the [facility]. She was also instructed to follow up with her PMD within 1 week of returning home. Was instructed to restart all home meds as previously prescribed, except for the Bisoprolol. She expressed understanding and agreement with these instructions. She was then discharged. Patient seen, reviewed, and discussed with attending, Dr. Villafana. Discharge Exam - Additional Findings Additional findings: - Constitutional Appears: Well, Non-toxic, No apparent distress - Head Exam Head Exam: ATRAUMATIC, NORMAL INSPECTION, NORMOCEPHALIC - Eye Exam Eye Exam: EOMI, Normal appearance - ENT Exam ENT Exam: Mucous Membranes Moist, Normal Exam - Neck Exam Neck exam: Positive for: Normal Inspection - Respiratory Exam Respiratory Exam: Clear to Auscultation Bilateral, NORMAL BREATHING PATTERN - Cardiovascular Exam Cardiovascular Exam: RRR, +S1, +S2. Absent: JVD, Murmur, Irregular Rhythm - GI/Abdominal Exam GI & Abdominal Exam: Normal Bowel Sounds, Soft. absent: Tenderness - Extremities Exam Extremities exam: Positive for: normal inspection - Back Exam Back exam: NORMAL INSPECTION - Neurological Exam Neurological exam: Awake and alert, oriented to self/location/year, moving all extremities spontaneously, following all commands appropriately - Psychiatric Exam Psychiatric exam: Normal Affect, Normal Mood - Skin Skin Exam: Dry, Intact, Normal Color, Warm Discharge Plan - Discharge Medications Prescriptions: Ipratropium 0.02% [Ipratropium [place] 2.5 Ml] 2.5 ml IH Q6 PRN #10 neb PRN Reason: Shortness Of Breath Propranolol [Inderal] 10 mg PO TID #90 tab - Follow Up Plan Condition: STABLE Disposition: HOME/ ROUTINE Instructions: Arrhythmias (DC), Metoprolol, Propranolol, Palpitations (DC) Additional Instructions: -As per our Associate Store Director, please stop taking Bisoprolol. You have been given a new prescription for Propranolol, please take as instructed. -Please resume all other home medications as prescribed. -No abnormal rhythm was detected on your EKGs or on the telemetry monitoring of your heart. Copies of your EKGs have been provided to show your Associate Store Director -The Echocardiogram of your heart was not notable for any significant problems. A copy of the report is in your papers, please show it to your Associate Store Director. -A marker of your thyroid function (Thyroid Stimulating Hormone) was suggestive of a low-functioning thyroid, please follow up with your primary medical doctor to pursue further testing of your thyroid. -Please return to a hospital if you experience worsening or new concerning symptoms. Referrals: PCP,NO [Primary Care Provider] - <Kayode Villafana - Last Filed: 06/19/17 17:31> Provider - Provider Date of Admission: 06/17/17 23:40 Attending physician: Kayode Villafana MD Primary care physician: NO PRIMARY CARE PROVIDER Hospital Course - Lab Results Lab Results: Micro Results 06/18/17 03:30 Blood Blood Culture - Preliminary NO GROWTH AFTER 24 HOURS 06/18/17 03:00 Blood Blood Culture - Preliminary NO GROWTH AFTER 24 HOURS Most Recent Lab Values WBC 5.7 10^3/ul (4.5-11.0) 06/19/17 06:30 RBC 4.45 10^6/uL (3.5-6.1) 06/19/17 06:30 Hgb 13.3 g/dL (12.0-16.0) 06/19/17 06:30 Hct 39.6 % (36.0-48.0) 06/19/17 06:30 MCV 89.0 fl (80.0-105.0) 06/19/17 06:30 MCH 29.9 pg (25.0-35.0) 06/19/17 06:30 MCHC 33.6 g/dl (31.0-37.0) 06/19/17 06:30 RDW 13.0 % (11.5-14.5) 06/19/17 06:30 Plt Count 274 10^3/uL (120.0-450.0) 06/19/17 06:30 MPV 10.0 fl (7.0-11.0) 06/19/17 06:30 Gran % 59.6 % (50.0-68.0) 06/19/17 06:30 Lymph % (Auto) 30.3 % (22.0-35.0) 06/19/17 06:30 [place] % (Auto) 8.9 % (1.0-6.0) H 06/19/17 06:30 Eos % (Auto) 1.0 % (1.5-5.0) L 06/19/17 06:30 Baso % (Auto) 0.2 % (0.0-3.0) 06/19/17 06:30 Gran # 3.42 (1.4-6.5) 06/19/17 06:30 Lymph # (Auto) 1.7 (1.2-3.4) 06/19/17 06:30 [place] # (Auto) 0.5 (0.1-0.6) 06/19/17 06:30 Eos # (Auto) 0.1 (0.0-0.7) 06/19/17 06:30 Baso # (Auto) 0.01 K/mm3 (0.0-2.0) 06/19/17 06:30 PT 10.6 SECONDS (9.4-12.5) 06/17/17 19:31 INR 0.93 (0.93-1.08) 06/17/17 19: APTT 31.4 Seconds (25.1-36.5) 06/17/17 19:31 D-Dimer, Quantitative < 200 ng/mL (0-243) 06/17/17 19:31 pO2 42 mm/Hg (30-55) 06/17/17 19:31 VBG pH 7.42 (7.32-7.43) 06/17/17 19:31 VBG pCO2 44.0 (40-60) 06/17/17 19:31 VBG HCO3 28.5 mmol/l (21-28) H 06/17/17 19:31 VBG Total CO2 29.9 mmol.L (22-28) H 06/17/17 19:31 VBG O2 Sat (Calc) 88.5 % (40-65) H 06/17/17 19:31 VBG Base Excess 3.4 mmol/L (0.0-2.0) H 06/17/17 19:31 VBG Potassium 3.8 mmol/L (3.6-5.2) 06/17/17 19:31 Sodium 138.0 mmol/L (132-148) 06/17/17 19:31 Chloride 104.0 mmol/L (98-107) 06/17/17 19:31 Glucose 144 mg/dl (65-105) H 06/17/17 19:31 Lactate 1.3 mmol/L (0.7-2.1) 06/17/17 19:31 FiO2 21.0 % 06/17/17 19:31 Sodium 141 mmol/L (132-148) 06/19/17 06:30 Potassium 3.5 mmol/L (3.6-5.0) L 06/19/17 06:30 Chloride 107 mmol/L (98-107) 06/19/17 06:30 Carbon Dioxide 23 mmol/L (21-33) 06/19/17 06:30 Anion Gap 14 (10-20) 06/19/17 06:30 BUN 10 mg/dL (7-21) 06/19/17 06:30 Creatinine 0.7 mg/dl (0.7-1.2) 06/19/17 06:30 Est GFR ( Amer) > 60 06/19/17 06:30 Est GFR (Non-Af Amer) > 60 06/19/17 06:30 Random Glucose 85 mg/dL (70-110) 06/19/17 06:30 Calcium 9.0 mg/dL (8.4-10.5) 06/19/17 06:30 Phosphorus 3.4 mg/dL (2.5-4.5) 06/19/17 06:30 Magnesium 2.2 mg/dL (1.7-2.2) 06/19/17 06:30 Total Bilirubin 0.3 mg/dL (0.2-1.3) 06/19/17 06:30 AST 22 U/L (14-36) 06/19/17 06:30 ALT 22 U/L (7-56) 06/19/17 06:30 Alkaline Phosphatase 64 U/L (38-126) 06/19/17 06:30 Lactate Dehydrogenase 379 U/L (333-699) 06/18/17 03:10 Total Creatine Kinase 46 U/L (35-230) 06/18/17 03:10 Troponin I < 0.01 ng/mL 06/18/17 03:10 Total Protein 7.3 g/dL (5.8-8.3) 06/19/17 06:30 Albumin 4.0 g/dL (3.0-4.8) 06/19/17 06:30 Globulin 3.4 gm/dL 06/19/17 06:30 Albumin/Globulin Ratio 1.2 (1.1-1.8) 06/19/17 06:30 TSH 3rd Generation 5.38 mIU/mL (0.46-4.68) H 06/18/17 11:15 Venous Blood Potassium 3.8 mmol/L (3.6-5.2) 06/17/17 19:31 Urine Color Light yellow (YELLOW) 06/17/17 19:41 Urine Appearance Clear (CLEAR) 06/17/17 19:41 Urine pH 8.5 (4.7-8.0) 06/17/17 19:[address] [place] 1.010 (1.005-1.035) 06/17/17 19:41 Urine Protein Negative mg/dL (<30 mg/dL) 06/17/17 19:41 Urine Glucose (UA) Negative mg/dL (NEGATIVE) 06/17/17 19:41 Urine Ketones Negative mg/dL (NEGATIVE) 06/17/17 19:41 Urine Blood Negative (NEGATIVE) 06/17/17 19:41 Urine Nitrate Negative (NEGATIVE) 06/17/17 19:41 Urine Bilirubin Negative (NEGATIVE) 06/17/17 19:41 Urine Urobilinogen 0.2 E.U./dL (<1 E.U./dL) 06/17/17 19:41 Ur Leukocyte Esterase Negative Quintin/uL (NEGATIVE) 06/17/17 19:41 Attending/Attestation - Attestation I have personally seen and examined this patient.: Yes I have fully participated in the care of the patient.: Yes I have reviewed all pertinent clinical information, including history, physical exam and plan: Yes Notes (Text): 06/19/17 17:27 52 year old female who presented with complaint of palpitations. She was admitted to telemetry unit for observation. Serial cardiac enzymes were negative. Echocadiogram was reviewed. She was seen by cardiology who switched her bisoprolol to propranolol. Her symptoms improved. She is discharged home to follow up with her pmd and set key driver. TSH was mildly elevated. Recommended to monitor and repeat TFTs with her pmd. Kayode Villafana MD Hospitalist.
--- NOTE | 2017-06-19 22:43 | CARD ---
APPROVED REPORT EKG Measurement Heart [id number] CT 158P-11 [id number] <Conclusion> Normal sinus rhythm Nonspecific T wave abnormality Abnormal ECG
== END 2017-06-19 16:01 | disposition home or self-care (01) ==
LOC: ED 18:06 → ERH 23:40 → 2RNO 06-18 01:18
PROVIDERS: ADMIT Internal Medicine; ATTEND Internal Medicine
DX: R00.2 Palpitations (principal); I34.1 Nonrheumatic mitral (valve) prolapse; E04.9 Nontoxic goiter, unspecified; J45.901 Unspecified asthma with (acute) exacerbation; Z90.710 Acquired absence of both cervix and uterus; Z82.49 Family history of ischemic heart disease and other diseases of the circulatory system; Z91.048 Other nonmedicinal substance allergy status; R40.2412 Glasgow coma scale score 13-15, at arrival to emergency department
CPT/HCPCS: 36415; 71046; 78582; 80053; 81003; 82550; 82803; 83615; 83735; 84100; 84443; 84484; 85025; 85378; 85610; 85730; 87040; 93005; 93306; 93970; 94640; 99285; G0378